=== PATIENT | male | born 1950 | race Caucasian/White ===

== ENCOUNTER → 2020-05-28 | Outpatient (CLI) | payer OTHER ==
[~2020-05-28] MED LIST: ASPI-1443 PO; CARV12.511 PO; CLOP75TA32 PO; GLIM2TAB30 PO; INSU300I SQ; ISOS30TA92 PO; MYCO250C7 PO; NIFE90TA65 PO; PRED5TAB PO; ROSU10TA28 PO; TACR1CAP10 PO; VALS160T29 PO
== END | disposition home or self-care (01) ==
LOC: EDBD 05-08 20:30 → SLP 20:17
PROVIDERS: ATTEND Internal Medicine
DX: G47.33 Obstructive sleep apnea (adult) (pediatric) (principal)
CPT/HCPCS: 95810

== ENCOUNTER → 2020-05-29 | Outpatient (CLI) | payer OTHER | END | disposition home or self-care (01) | LOC: EDBD → SLP 20:26 | PROVIDERS: ATTEND Internal Medicine | DX: G47.33 Obstructive sleep apnea (adult) (pediatric) (principal) | CPT/HCPCS: 95811 ==